=== PATIENT | female | born 1990 | race Caucasian/White ===

== ENCOUNTER 2016-11-09 11:40 | Emergency (ER) | payer SELFPAY ==
[2016-11-09 11:44] VITALS: BP 138/87; BMI 46.0
[2016-11-09] MEDS ORDERED: TORADOL 60 MG VIAL IM ONE (12:05)
--- NOTE | 2016-11-09 12:05 | DR.GENAD ---
HPI - PCP Primary Care Physician: Ruddy - Complaint/Symptoms Chief Complaint Doctors Comments: Patient fell onto a carpeted floor on yesterday, she states that she heard a pop and today her right ankle hurst and admits to knee pain Chief Complaint:: pt states she fell last night and heard a pop in her right ankle. C/o right ankle and knee pain - Source History Provided: Patient - Mode of Arrival Mode of Arrival: Ambulatory - Timing Onset of Chief Complaint: 11/08/16 PMH - PMH Past Medical History: No Past Medical History: Hypertension Past Surgical History: Yes Surgical History: , Cholecystectomy, Tonsillectomy Past Surgical History Comment: Tubes in both ears - Family History History of Family Medical Conditions: Yes Family Medical History: Diabetes Mellitus, Hypertension - Social History Does patient currently use any type of tobacco product: No Have you used tobacco products in the last 12 months: No Type of Tobacco Use: None Does any household member use tobacco: No Alcohol Use: None Do you use any recreational Drugs:: No Lives With: Family Lives Where: Home - infectious screening In the last 2 months have you had wt loss of >10#?: NO Have you had fever, night sweats or hemotysis?: No Have you traveled outside the country in the last 6 months?: No Isolation: Standard ROS - Review of Systems Constitutional: No Symptoms Reported Eyes: No Symptoms Reported, Eye Pain Respiratoy: No Symptoms Reported Cardiovascular: No Symptoms Reported Gastrointestinal/Abdominal: No Symptoms Reported Genitourinary: No Symptoms Reported Neurological: No Symptoms Reported Musculoskeletal: No Symptoms Reported Integumentary: No Symptoms Reported Hematologic/Lymphatic: No Symptoms Reported Endocrine: No Symptoms Reported Psychiatric: No Symptoms Reported All Other Systems: Reviewed and Negative PE - Vital Signs Vitals: Temperature 97.6 F Pulse Rate 78 Respiratory Rate 18 Blood Pressure [Left Arm] 126/82 Blood Pressure [Right Arm] 133/87 Blood Pressure 138/87 O2 Sat by Pulse Oximetry 100 - General Limitations: No Limitations General Appearance: Alert, In No Apparent Distress, Appears Intoxicated - Head Head Exam: Normal Inspection, Atraumatic - Eyes Eye exam: Normal Appearance, PERRL, EOMI - ENT ENT Exam: Normal Exam External Ear Exam: Normal External Inspection TM/Canal Exam: Bilateral Normal Nose Exam: Normal Nose Exam Mouth Exam: Normal Inspection Throat Exam: Normal Inspection - Neck Neck Exam: Normal Inspection - Chest Chest Inspection: Normal Inspection - Respiratory Respiratory Exam: Normal Lung Sounds Bilat Respiratory Exam: Bilateral Clear to Auscultation - Cardiovascular Cardiovascular Exam: Regular Rate, Normal Rhythm - Abdominal Exam Abdominal Exam: Normal Inspection, Normal Bowel Sounds Abdominal Tenderness: negative: RUQ, RLQ, LUQ, LLQ, Epigastrium, Suprapubic, Diffuse, Mild, Moderate, Severe, Other - Extremities Extremities Exam: Normal Inspection, Joint Swelling (right ankle) - Back Back Exam: Other - Neurologic Neurological Exam: Alert, Oriented X3, CN II-XII Intact - Psychiatric Psychiatric Exam: Normal Affect, Normal Mood - Skin Skin Exam: Warm, Dry, Intact ROR - XRAY XRAY Interpreted by: Self (right ankle with soft tissue edema, tenderness to touch and ROM, Knee wnkl) - Diagnosis Discharge Problem: Ankle sprain Qualifiers: Encounter type: initial encounter Involved ligament of ankle: calcaneofibular ligament Laterality: right Qualified Code(s): S93.411A - Sprain of calcaneofibular ligament of right ankle, initial encounter - Discharge Plan Condition: Stable - Follow ups/Referrals Follow ups/Referrals: Inderjit Fox [Primary Care Provider] - 3 days - Instructions
[2016-11-09] MEDS ORDERED: TORADOL 60 MG VIAL ONE (12:07)
--- NOTE | 2016-11-09 12:36 | RAD ---
HISTORY: Right knee pain status post fall Study: Two views right knee Comparison: None Findings: No evidence for acute cortical disruption or dislocation. There is mild medial compartmental DJD. The lateral radiograph fails to demonstrate significant joint effusion. Patellofemoral compartment is normal in its appearance. IMPRESSION: No acute bony radiographic abnormality. Reported By:
--- NOTE | 2016-11-09 12:42 | RAD ---
HISTORY: Fall with ankle pain Study: 3 views of the right ankle. Comparison: None Findings: No acute fracture or dislocation. The ankle mortise remains well aligned. No significant soft tissu e swelling or injury can be seen. IMPRESSION: 1. No acute abnormalities of the right ankle. Reported By:
== END 2016-11-09 12:49 | disposition home or self-care (01) ==
LOC: ER 11:47
DX: S93.411A Sprain of calcaneofibular ligament of right ankle, initial encounter (principal); W19.XXXA Unspecified fall, initial encounter; Y92.9 Unspecified place or not applicable
CPT/HCPCS: 73560; 73610; 96372; 99282; J1885